=== PATIENT | male | born 1945 | race Caucasian/White ===

== ENCOUNTER 2016-10-09 12:27 | Day surgery (SDC) | payer MEDICARE ==
[~2016-10-09] VITALS: Ht 182.9 cm; Wt 99.5 kg
[2016-10-09] MEDS ORDERED: HYDROCODON-ACE1 EAC7 PO (13:10)
[2016-10-09] MEDS ORDERED: NORVASC5 MG PO (13:10)
[2016-10-09] MEDS ORDERED: PIMECROLIMUS TP (13:10)
[2016-10-09] MEDS ORDERED: ZOFRAN4 MG PO (13:11)
[2016-10-09] MEDS ORDERED: ZYLOPRIM300 MG PO (13:11)
[2016-10-09] MEDS ORDERED: INCRUSE ELLI62.5 MCG INH (13:12)
[2016-10-09] MEDS ORDERED: PROAIR HFA8.5 GM INH (13:12)
[2016-10-09] MEDS ORDERED: FLUTICASONE PRO16 GM NASAL (13:12)
[2016-10-09] MEDS ORDERED: NEXIUM40 MG PO (13:13)
[2016-10-09 13:51] VITALS: BP 141/76; Ht 182.9 cm; Wt 99.5 kg
[2016-10-09 14:02] LABS: BASOPHILS 0.9 % (0.0-2.0); EOSINOPHILS 1.5 % (0-7); HEMATOCRIT 31.4 % (42.0-54.0); HEMOGLOBIN 10.2 g/dL (13.5-17.5); IMMATURE GRANULOCYTES 0.2 % (0-5); LYMPHOCYTES 24.8 % (15-50); MCHC 32.5 g/dL (31.0-37.0); MCV 89.2 fL (80.0-100.0); MEAN PLATELET VOLUME 10.1 fL (7.4-10.4); MONOCYTES 5.7 % (2-11); NEUTROPHILS 66.9 % (40-80); PLATELET COUNT 62 10x3/uL (130-400); RBC 3.52 10x6/uL (4.20-6.10); RDW 13.2 % (11.5-14.5); WBC 4.6 10x3/uL (4.8-10.8)
[2016-10-09 14:24] LABS: CALC OSMOLALITY 272 mosm/kg (275-300); CALCIUM 8.9 mg/dL (8.5-10.1); CARBON DIOXIDE 27.4 mmol/L (21.0-32.0); CHLORIDE - SERUM 100 mmol/L (98-107); GLUCOSE 88 mg/dL (74-106); POTASSIUM - SERUM 3.9 mmol/L (3.5-5.1); SODIUM 138 mmol/L (136-145); UREA NITROGEN 8 mg/dL (7-18); eGFR NON AFRICAN AMERICAN 79 mL/min (90-120)
[2016-10-09 14:32] LABS: PLATELET ESTIMATE DECREASED
--- NOTE | 2016-10-09 16:27 | NUR ---
1605 BACK FROM COLONOSCOPY AWAKE AND TALKING. RESP NONLABORED. VOTITI HERE AND ROUNDING ON PATIENT ON V/S MACHINE AND ENCOURAGED TO PASS FLATUS.
--- NOTE | 2016-10-09 16:53 | NUR ---
1635 UP AND PASSED AIR X 3 VOIDED FULL LIQUIDS SERVED.
--- NOTE | 2016-10-09 17:21 | NUR ---
1705 V/S TAKEN IV DCD CATHETER INTACT. DISCHARGE INSTRUCTIONS GIVEN AND VERBALLY UNDERSTANDS.
--- NOTE | 2016-10-14 10:14 | OP ---
PATIENT NAME: CORNELIO BLANDON MEDICAL RECORD: [id number] :47 LOCATION:[facility] ADMISSION DATE: SURGEON: MIGUEL MARTELL DO DATE OF OPERATION: 10/09/2016 PROCEDURE: Colonoscopy. SCOPE: Olympus video pediatric colonoscope. MEDICATIONS: Propofol 400 mg IV per anesthesia. INDICATIONS FOR PROCEDURE: Lower abdominal pain, altered bowel function, anemia, history of diverticulitis in April 2014, status post colon resection and colostomy for 6 months with reversal. FINDINGS: Informed consent was given. The patient was made comfortable with the above medication. After reaching an adequate level of sedation by slow IV push, the patient was placed on his left side. A digital rectal examination was performed, which was normal. The endoscope was then advanced under direct visualization through the rectum to the level of the anastomosis involving the colon and terminal ileum. There was severe left sided diverticulosis present with diverticular associated colitis present within that segment. This consisted of granularity, multiple hemorrhagic areas of tissue prolapse, and loss of vascular patent and thickening of the bowel. Again, this involved then involved the left side. There was some granularity and erythema as well as loss of vascular pattern involving the ascending colon and rectum. The previous surgical resection and anastomotic site was normal appearing. There were no ulcerations or other abnormalities in this region. The endoscope was advanced into the small bowel without difficulty and it appeared normal. The scope was withdrawn slowly, looking at the mucosa. There were no polyps or other lesions identified. Random biopsies were taken in the ascending colon and transverse colon regarding his history of diarrhea. There were also biopsies taken in the diverticular associated colitis segment and in the rectum regarding the possible proctitis findings. The endoscope was retroflexed in the rectum and it appeared normal. Scope was withdrawn from the patient. The patient tolerated the procedure well and there were no complications. The withdrawal time was 14 minutes. ESTIMATED BLOOD LOSS: Less than 5 cc. IMPRESSION: Left-sided diverticulosis with diverticular associated colitis. Biopsies taken. There was evidence of a prior intervention in the ascending colon in the form of a previous small bowel and colonic resection with ileocolonic anastomosis. Random biopsies were taken in the ascending colon as well as the sigmoid colon and rectum. PLAN AND RECOMMENDATIONS: 1. Discharge home when recovery parameters are met. 2. Continue current diet. 3. Continue current medications. 4. Await results of biopsy specimens for further recommendations pending. 5. Recall colonoscopy in 5 years. TRANSINT:[id number] Voice Confirmation ID: [id number] DOCUMENT ID: [id number] OPERATIVE REPORT [id number] CORNELIO BLANDON NATHAN A DO at 1014 CC: [id number] DICTATION DATE: 10/09/16 160 RESCUE WORKER: 10/09/16 2246 [facility] 10/09/16 [id number] [place] [address]
[2016-10-20] MEDS ORDERED: PROBIOTIC1 EAC1 PO (07:24)
[2016-10-20] MEDS ORDERED: BENADRYL25 MG PO (07:30)
== END 2016-10-09 17:10 | disposition home or self-care (01) ==
LOC: D.OPS 12:27
PROVIDERS: Anesthesiology
DX: K52.89 Other specified noninfective gastroenteritis and colitis (principal); K62.89 Other specified diseases of anus and rectum; D64.9 Anemia, unspecified; K57.30 Diverticulosis of large intestine without perforation or abscess without bleeding

== ENCOUNTER 2016-10-20 10:29 | Day surgery (SDC) | payer MEDICARE ==
[~2016-10-20] VITALS: Ht 182.9 cm; Wt 99.1 kg
[2016-10-20 07:02] LABS: ANION GAP 11.7 mmol/L (8-16); CALCIUM 8.6 mg/dL (8.5-10.1); CARBON DIOXIDE 29.1 mmol/L (21.0-32.0); CREATININE - SERUM 1.1 mg/dL (0.6-1.3); POTASSIUM - SERUM 3.8 mmol/L (3.5-5.1)
[2016-10-20 07:05] LABS: BASOPHILS 0.8 % (0.0-2.0); EOSINOPHILS 3.5 % (0-7); HEMATOCRIT 38.9 % (42.0-54.0); HEMOGLOBIN 12.7 g/dL (13.5-17.5); IMMATURE GRANULOCYTES 0.2 % (0-5); LYMPHOCYTES 31.1 % (15-50); MCH 29.3 pg (26.0-34.0); MCHC 32.6 g/dL (31.0-37.0); MCV 89.6 fL (80.0-100.0); MEAN PLATELET VOLUME 9.6 fL (7.4-10.4); MONOCYTES 7.5 % (2-11); NEUTROPHILS 56.9 % (40-80); RBC 4.34 10x6/uL (4.20-6.10); RDW 12.9 % (11.5-14.5); WBC 6.5 10x3/uL (4.8-10.8)
[2016-10-20 07:07] LABS: PLATELET COUNT 200 10x3/uL (130-400)
[2016-10-20 08:02] VITALS: BP 148/72; Ht 182.9 cm; Wt 99.1 kg
[~2016-10-20 10:29] MED LIST: BENADRYL25 MG PO; FLUTICASONE PRO16 GM NASAL; HYDROCODON-ACE1 EAC7 PO; INCRUSE ELLI62.5 MCG INH; NEXIUM40 MG PO; NORVASC5 MG PO; PIMECROLIMUS TP; PROAIR HFA8.5 GM INH; PROBIOTIC1 EAC1 PO; ZOFRAN4 MG PO; ZYLOPRIM300 MG PO
--- NOTE | 2016-10-20 15:58 | NUR ---
1155 PT DRESSED, AWAKE & ALERT. GIVEN DISCHARGE INSTRUCTIONS INFORMATION INCLUDING: MED REC., SHEET LISTING NSAIDS & BLOOD THINNERS TO AVOID, REFLUX ESOPHAGITIS/HIATEL HERNIA DIET SHEET, REFLUX ESOPHAGITIS INFORMATION SHEETS, & D/C INSTRUCTION SHEET POST ENDOSCOPIC PROCEURES. INFO REVIEWED & DISCUSSED WITH PATIENT. PATIENT VOICED UNDERSTANDING. TO PRIVATE CAR PER WHEELCHAIR BY VOLUNTEER. HOME WITHI SON FERNANDO PERRY. Vivienne POOLE R.N.
--- NOTE | 2016-10-21 09:05 | OP ---
PATIENT NAME: CORNELIO BLANDON MEDICAL RECORD: [id number] :47 LOCATION:[facility] ADMISSION DATE: SURGEON: MIGUEL MARTELL DO DATE OF OPERATION: 10/20/2016 PROCEDURE: EGD with biopsies. SCOPE: Olympus video gastroscope. MEDICATIONS: Propofol per anesthesia. INDICATIONS FOR PROCEDURE: Anemia, heartburn, and history of Colby's esophagus. FINDINGS: Informed consent was given. The patient was made comfortable with propofol by slow IV push per anesthesia. Once the patient reached an adequate level of sedation, he was placed on his left side. The endoscope was then advanced under direct visualization through the mouth to the level of the second portion of the duodenum. The upper and middle esophagus appeared normal. In the distal esophagus, there was evidence of Colby's esophagus measuring 3 cm in length, from 36 cm to 39 cm from the incisors. Four quadrant biopsies were taken at 36 cm, 37 cm, and 39 cm. There were no focal abnormalities warranting further biopsies. The scope was advanced down into the stomach and retroflexed to view the cardia, where a small sliding hiatal hernia was present. There was also diffuse edematous gastritis present throughout the fundus, body, and antrum. Random biopsies were taken to rule out H. pylori and to send for histology. Scope was advanced through the pylorus into the bulb and second portion of the duodenum, which were normal. Scope was withdrawn from the patient. The patient tolerated the procedure well and there were no complications. ESTIMATED BLOOD LOSS: Less than 5 cc. IMPRESSION: 1. Colby's esophagus from 36-39 cm. 2. Small sliding hiatal hernia. 3. Edematous gastritis throughout the stomach. PLAN AND RECOMMENDATIONS: 1. Discharge home when recovery parameters are met. 2. Continue current diet. 3. Continue current medications including omeprazole 40 mg daily. 4. Reflux precautions. 5. Await biopsy results for recall recommendations pending. I anticipate repeating the upper endoscopy in 2 years for Colby's surveillance. TRANSINT:[id number] Voice Confirmation ID: [id number] DOCUMENT ID: [id number] OPERATIVE REPORT [id number] CORNELIO BLANDON MIGUEL MARTELL DO at 0905 CC: [id number] DICTATION DATE: 10/20/16 0939 INVESTMENT REPRESENTATIVE: 10/20/16 1359 [facility] 10/20/16 [facility] [address] [place] [address]
== END 2016-10-20 11:55 | disposition home or self-care (01) ==
LOC: D.OPS 10:29
PROVIDERS: Anesthesiology
DX: K21.9 Gastro-esophageal reflux disease without esophagitis (principal); K22.70 Barrett's esophagus without dysplasia; K44.9 Diaphragmatic hernia without obstruction or gangrene; K29.70 Gastritis, unspecified, without bleeding; J45.909 Unspecified asthma, uncomplicated; I10 Essential (primary) hypertension; J44.9 Chronic obstructive pulmonary disease, unspecified